=== PATIENT | female | born 1990 | race Hispanic/Latino ===

== ENCOUNTER 2021-06-30 13:57 | Emergency (ER) | payer MEDICAID, SELFPAY ==
[2021-06-30 15:42] LABS: SARS-CoV-2 NAA Rapid Test DETECTED (NotDetected)
== END 2021-06-30 16:52 | disposition home or self-care (01) ==
LOC: CSHERS 13:57
DX: U07.1 COVID-19 (principal)
CPT/HCPCS: 0240U; 71045

== ENCOUNTER 2021-09-06 16:43 | Emergency (ER) | payer SELFPAY ==
[2021-09-06] MEDS ORDERED: Ibuprofen 200 MG TAB ONE (17:23)
[2021-09-06 18:35] LABS: SARS-CoV-2 NAA Rapid Test Not Detected (NotDetected)
== END 2021-09-06 18:55 | disposition home or self-care (01) ==
LOC: CSHERS 16:43
DX: J10.1 Influenza due to other identified influenza virus with other respiratory manifestations (principal); R00.0 Tachycardia, unspecified; Z20.822 Contact with and (suspected) exposure to COVID-19
CPT/HCPCS: 71045; 93005